=== PATIENT | female | born 1995 | race Caucasian/White ===

== ENCOUNTER 2023-07-25 19:59 | Emergency (ER) | payer MEDICAID ==
[~2023-07-25] VITALS: Ht 154.9 cm; Wt 78.6 kg
[2023-07-25 20:29] VITALS: O2SAT 100
[2023-07-25 21:04] LABS: BASOPHILS % 0.2 % (0.0-2.0); HEMATOCRIT. 44.1 % (36.0-48.0); HEMOGLOBIN. 15.1 g/dL (12.0-16.0); LYMPHOCYTES % 9.3 % (20.0-50.0); MEAN CORPUSCULAR HEMOGLOBIN 31.3 pg (28.0-32.0); MEAN CORPUSCULAR HGB CONC 34.3 g/dL (31.0-37.0); MEAN CORPUSCULAR VOLUME 91.2 fL (81.0-99.0); MEAN PLATELET VOLUME 9.2 fl (7.4-10.4); MONOCYTES % 4.3 % (2.0-8.0); NEUTROPHILS % 86.2 % (40.0-76.0); PLATELET 260 x1000/uL (130-400); RED BLOOD CELL COUNT 4.84 mill/uL (4.2-5.4); RED CELL DISTRIBUTION WIDTH 13.7 % (11.6-14.6); WHITE BLOOD COUNT 19.5 x1000/uL (4.5-11.0)
[2023-07-25 21:23] LABS: ALANINE AMINOTRANSFERASE 31 IU/L (10-49); ALBUMIN 5.3 g/dL (3.2-4.8); ASPARTATE AMINOTRANSFERASE 22 IU/L (<34); BILIRUBIN TOTAL 0.8 mg/dL (0.1-1.0); CALCIUM 9.5 mg/dL (8.7-10.4); CARBON DIOXIDE 27 mEq/L (21-32); CHLORIDE 103 mEq/L (98-107); CREATININE 0.6 mg/dL (0.6-1.0); GLUCOSE 135 mg/dL (70-105); POTASSIUM 3.7 mEq/L (3.5-5.1); SODIUM 140 mEq/L (136-145); UREA NITROGEN BLOOD 9 mg/dL (9-23)
[2023-07-25 21:25] LABS: TROPONIN I HIGH SENSITIVITY 54 ng/L (3.0-34)
[2023-07-25 21:44] LABS: CLARITY URINE CLEAR (CLEAR); COLOR URINE YELLOW (YELLOW); GLUCOSE URINE NEGATIVE (NEGATIVE); KETONES URINE NEGATIVE (NEGATIVE); LEUKOCYTE ESTERASE URINE NEGATIVE (NEGATIVE); NITRITE URINE NEGATIVE (NEGATIVE); OCCULT BLOOD URINE TRACE (NEGATIVE); PH URINE 7.5 (4.5-8.0); PROTEIN URINE 1+ (NEGATIVE); SPECIFIC GRAVITY URINE 1.004 (1.005-1.030); UROBILINOGEN URINE 0.2 E.U./dL (0.2-1.0)
[2023-07-25 22:12] LABS: BACTERIA URINE TRACE; RBC URINE 0-2 /hpf (0-2); SQUAMOUS EPITHELIAL CELL URINE 1+ /lpf (RARE/1+); WBC URINE 0-2 /hpf (0-2)
[2023-07-25] MEDS: FAMOTIDINE 20MG/2ML VIAL IV STA (22:30)
[2023-07-25] MEDS: SODIUM CHLORIDE 0.9% 1,000 ML IV ONE (22:30)
[2023-07-25] MEDS: ONDANSETRON HCL 4MG/2ML INJ IV STA (22:30)
[2023-07-25] MEDS: MORPHINE SULFATE 4 MG/ML CPJ (NOT FOR IM USE) IV STA (22:30)
[2023-07-26] MEDS: IOHEXOL-300 100 ML BOTTLE ONE (02:26)
[2023-07-26 04:15] VITALS: BP 102/58; PULSE 99; RESP 16; TEMP 98.1
[2023-07-26] MEDS ORDERED: ONDA4TAB50 MT (04:18)
[2023-07-26] MEDS ORDERED: PROT20 MT (04:18)
[2023-07-27] MEDS ORDERED: IOHEXOL-300 100 ML BOTTLE ONE (10:43)
== END 2023-07-26 04:45 | disposition home or self-care (01) ==
LOC: ER 19:59
DX: R10.84 Generalized abdominal pain (principal); R11.2 Nausea with vomiting, unspecified; Z98.890 Other specified postprocedural states
CPT/HCPCS: 80053; 81003; 81025; 83605; 83690; 85025; 84484; 36415; 96361; 96374; 96375; 99285; 74177; J3490; J2405; J2270; J7030; Z7610 ×3; Q9967